=== PATIENT | male | born 1950 | race Caucasian/White ===

== ENCOUNTER 2018-07-01 11:41 | Inpatient (IN) ==
--- NOTE | 2018-07-01 12:14 | ED ---
HPI General Chief complaint: Respiratory Symptoms Stated complaint: SOB Time Seen by Provider: 07/01/18 12:01 History of Present Illness HPI narrative: Patient is visiting from [place]. He has a history of lung cancer and emphysema. He completed chemo on Wednesday per his . O2 sat at home about 78% he denies chest pain, lower extremity edema, fever, but reports a cough. Reporting shortness of breath on exertion and rest. Patient wants to be resuscitated but not intubated. Patient not on hospice or palliative care per family. Related Data Home Medications Medication Instructions Recorded Confirmed albuterol sulfate 2.5 mg INHALATION Q6H PRN 07/01/18 07/01/18 dextromethorphan-guaifenesin 1 tab PO Q12H 07/01/18 07/01/18 fluticasone-vilanterol [Breo 1 inh INHALATION DAILY 07/01/18 07/01/18 Ellipta] megestrol 800 mg PO DAILY 07/01/18 07/01/18 mirtazapine 15 mg PO HS 07/01/18 07/01/18 ondansetron HCl [Zofran] 8 mg PO BID PRN 07/01/18 07/01/18 oxycodone-acetaminophen 1 tab PO Q6H PRN 07/01/18 07/01/18 polyethylene glycol 3350 [Miralax] 17 g PO DAILY 07/01/18 07/01/18 prochlorperazine maleate 10 mg PO Q6H PRN 07/01/18 07/01/18 [Compazine] sennosides 8.6 mg PO DAILY PRN 07/01/18 07/01/18 sertraline [Zoloft] 50 mg PO DAILY 07/01/18 07/01/18 Allergies Allergy/AdvReac Type Severity Reaction Status Date / Time ibuprofen [From Advil] Allergy Hives Verified 07/01/18 11:58 Penicillins Allergy Hives Verified 07/01/18 11:58 Review of Systems ROS: all other systems reviewed are negative [facility] Medical History Medical History Emphysema lung (Acute) Lung cancer (Acute) Social History Social History Substance History: No History of Abuse Second Hand Smoke Exposure: No Smoking Status: Current every day smoker Tobacco Type: E-Cigarettes How Often Do You Have a Drink Containing Alcohol: Never Recent Travel in [facility] within the Last 8 Weeks: No Recent Out of Country Travel within the Last 8 Weeks: No Immunization History Tetanus Immunization: Unsure Hx Influenza Vaccine This Season: Yes Exam Narrative Exam Narrative: GENERAL: Respiratory distress peer SKIN: Focused skin assessment warm/dry. HEAD: Atraumatic. Normocephalic. EYES: Pupils equal and round. No scleral icterus. No injection or drainage. ENT: No nasal bleeding or discharge. Mucous membranes pink and moist. NECK: Trachea midline. No JVD. CARDIOVASCULAR: Tachycardic. No murmur appreciated. RESPIRATORY: No accessory muscle use. Clear to auscultation. Decreased breath sounds on the right. GASTROINTESTINAL: Abdomen soft, non-tender, nondistended. Hepatic and splenic margins not palpable. MUSCULOSKELETAL: No obvious deformities. No clubbing. No cyanosis. No edema. NEUROLOGICAL: Awake and alert. No obvious cranial nerve deficits. Motor grossly within normal limits. Normal speech. PSYCHIATRIC: Appropriate mood and affect; insight and judgment normal. Course Initial Documented Vital Signs Temperature 97.7 F 07/01/18 11:44 Pulse Rate 120 H 07/01/18 11:44 Respiratory Rate 24 07/01/18 11:44 Blood Pressure 123/82 07/01/18 11:44 Pulse Oximetry 82 L 07/01/18 11:44 Last Documented Vital Signs Temperature 97.7 F 07/01/18 11:44 Pulse Rate 108 H 07/01/18 15:13 Respiratory Rate 17 07/01/18 15:13 Blood Pressure 103/70 07/01/18 14:44 Pulse Oximetry 94 L 07/01/18 14:44 Critical Care Time Critical Care Time: Yes Total Critical Care Time: 30 Attestation: Aggregate critical care time was 30 minutes. Time to perform other separately billable procedures was not included in the critical care time. My time did not include minutes spent treating any other patients simultaneously or on activities that did not directly contribute to the patient's treatment. The services I provided to this patient were to treat and/or prevent clinically significant deterioration that could result in: cardiac arrest, respiratory failure, increased morbidity, I provided critical care services requiring my management, as noted below: Chart data review, documentation time, medication orders and management, vital sign assessments/reviewing monitor data, ordering and reviewing lab tests, ordering and interpreting/reviewing x-rays and diagnostic studies, care of the patient and discussion of the patient with the admitting physicians. Medical Decision Making MDM Narrative Medical decision making narrative: Patient presents to the emergency department with hypoxia. Patient placed on brick unloader tender, continuous pulse ox, and was satting in the low 80s/high 70s on 3 L NC. Switched to nonrebreather and weaned to 4L via NC which resulted in O2 sat of 90-93%. Labs, EKG, chest x- ray ordered. Labs: Low plt; decrease hgb/HCT; d-dimer increased; glc increased; potassium and magnesium decreased, lactic acid elevated Received call from radiology, recommend CT chest as he states small PTX. CT chest ordered STAT and CT called. CXR: CONCLUSION:Suspected emphysematous change in the right upper lung with a mild pneumothorax seen over the right apex.Areas of consolidation the mid to lower lungs bilaterally.Prominent interstitium which may represent some underlying interstitial disease. patient given 2grams IV magnesium, 20 MEQ KCL po. Duoneb x 1. CTA chest: CONCLUSION:1. Extensive edematous changes with small right pneumothorax2. Extensive pleural and parenchymal changes in both lungswith large left hilar mass3. With metastasis as described above.4. No central pulmonary emboli. Will admit to [facility]. Medical Screen Exam Complete: Yes Emergency Medical Condition: Yes Differential Diagnosis Differential Diagnosis: PE, pneumothorax, pneumonia, sepsis, pleural effusion, pulmonary edema, COPD exacerbation, ACS Lab Data Result diagrams: 07/01/18 15:10 07/01/18 12:18 Lab Results 07/01/18 07/01/18 07/01/18 Range/Units 12:02 12:18 12:18 WBC (4.0-11.0) th/mm3 RBC (4.50-5.90) mil/mm3 Hgb (13.0-17.0) gm/dL Hct (39.0-51.0) % MCV (80.0-100.0) fL MCH (27.0-34.0) pg MCHC (32.0-36.0) % RDW (11.6-17.2) % Plt Count (150-450) th/mm3 MPV (7.0-11.0) fL Prelim Diff (Auto) Neut % (Auto) (16.0-70.0) % Lymph % (Auto) (9.0-44.0) % Branch % (Auto) (0.0-8.0) % Eos % (Auto) (0.0-4.0) % Baso % (Auto) (0.0-2.0) % Neut # (Auto) (1.8-7.7) th/mm3 Lymph # (Auto) (1.0-4.8) th/mm3 Branch # (Auto) (0.0-0.9) th/mm3 Eos # (Auto) (0.0-0.4) th/mm3 Baso # (Auto) (0.0-0.2) th/mm3 Differential Comment . PT 11.3 (9.8-11.6) sec INR 1.1 Ratio APTT 29.5 (24.3-30.1) sec D-Dimer Quant (PE/DVT) 2.50 H (0.00-0.50) mg/L FEU Puncture Site Left radial Patient Temperature 98.6 O2 Saturation 96 (90-100) % ABG pH 7.51 H* (7.380-7.420) ABG pCO2 30 L (38-42) mmHg ABG pO2 122 H (61-120) mmHg ABG HCO3 23 (22-26) mmol/L ABG O2 Content 13.7 (12.0-20.0) Vol % ABG Base Excess 0.5 (-2-2) mmol/L ABG Methemoglobin 0.3 (0-2) % Russ Test Present Hemoglobin 10.0 L (12.0-16.0) G/DL Carboxyhemoglobin 2.1 (0-4) % O2 Delivery Device Non-rebreathing mask Inspired O2 100 % Critical Value Yes Sodium (136-145) meq/L Potassium (3.5-5.1) meq/L Chloride (98-107) meq/L Carbon Dioxide (21.0-32.0) meq/L Anion Gap (5-15) meq/L BUN (7-18) mg/dL Creatinine (0.60-1.30) mg/dL Estimated GFR (>89) mL/min Random Glucose (74-106) mg/dL Lactic Acid (0.4-2.0) mmol/L Calcium (8.5-10.1) mg/dL Magnesium (1.5-2.5) mg/dL Total Bilirubin (0.2-1.0) mg/dL AST (15-37) U/L ALT (12-78) U/L Alkaline Phosphatase (45-117) U/L Total Creatine Kinase (39-308) U/L Troponin I (0.02-0.05) ng/mL B-Natriuretic Peptide (0-100) pg/mL Total Protein (6.4-8.2) g/dL Albumin (3.4-5.0) g/dL 07/01/18 07/01/18 07/01/18 Range/Units 12:18 12:18 12:18 WBC (4.0-11.0) th/mm3 RBC (4.50-5.90) mil/mm3 Hgb (13.0-17.0) gm/dL Hct (39.0-51.0) % MCV (80.0-100.0) fL MCH (27.0-34.0) pg MCHC (32.0-36.0) % RDW (11.6-17.2) % Plt Count (150-450) th/mm3 MPV (7.0-11.0) fL Prelim Diff (Auto) Neut % (Auto) (16.0-70.0) % Lymph % (Auto) (9.0-44.0) % Branch % (Auto) (0.0-8.0) % Eos % (Auto) (0.0-4.0) % Baso % (Auto) (0.0-2.0) % Neut # (Auto) (1.8-7.7) th/mm3 Lymph # (Auto) (1.0-4.8) th/mm3 Branch # (Auto) (0.0-0.9) th/mm3 Eos # (Auto) (0.0-0.4) th/mm3 Baso # (Auto) (0.0-0.2) th/mm3 Differential Comment PT (9.8-11.6) sec INR Ratio APTT (24.3-30.1) sec D-Dimer Quant (PE/DVT) (0.00-0.50) mg/L FEU Puncture Site Patient Temperature O2 Saturation (90-100) % ABG pH (7.380-7.420) ABG pCO2 (38-42) mmHg ABG pO2 (61-120) mmHg ABG HCO3 (22-26) mmol/L ABG O2 Content (12.0-20.0) Vol % ABG Base Excess (-2-2) mmol/L ABG Methemoglobin (0-2) % Russ Test Hemoglobin (12.0-16.0) G/DL Carboxyhemoglobin (0-4) % O2 Delivery Device Inspired O2 % Critical Value Sodium 136 (136-145) meq/L Potassium 3.2 L (3.5-5.1) meq/L Chloride 101 (98-107) meq/L Carbon Dioxide 21.6 (21.0-32.0) meq/L Anion Gap 13 (5-15) meq/L BUN 13 (7-18) mg/dL Creatinine 0.66 (0.60-1.30) mg/dL Estimated GFR Greater than 89 (>89) mL/min Random Glucose 126 H (74-106) mg/dL Lactic Acid 2.3 H (0.4-2.0) mmol/L Calcium 8.8 (8.5-10.1) mg/dL Magnesium 1.4 L (1.5-2.5) mg/dL Total Bilirubin 0.7 (0.2-1.0) mg/dL AST 28 (15-37) U/L ALT 42 (12-78) U/L Alkaline Phosphatase 80 (45-117) U/L Total Creatine Kinase 35 L (39-308) U/L Troponin I Less than 0.02 L (0.02-0.05) ng/mL B-Natriuretic Peptide 73 (0-100) pg/mL Total Protein 7.2 (6.4-8.2) g/dL Albumin 2.3 L (3.4-5.0) g/dL 07/01/18 Range/Units 15:10 WBC 7.3 (4.0-11.0) th/mm3 RBC 2.98 L (4.50-5.90) mil/mm3 Hgb 9.6 L (13.0-17.0) gm/dL Hct 28.8 L (39.0-51.0) % MCV 96.6 (80.0-100.0) fL MCH 32.1 (27.0-34.0) pg MCHC 33.2 (32.0-36.0) % RDW 23.7 H (11.6-17.2) % Plt Count 70 L (150-450) th/mm3 MPV 8.2 (7.0-11.0) fL Prelim Diff (Auto) Slide review pending Neut % (Auto) 92.5 H (16.0-70.0) % Lymph % (Auto) 3.5 L (9.0-44.0) % Branch % (Auto) 3.7 (0.0-8.0) % Eos % (Auto) 0.0 (0.0-4.0) % Baso % (Auto) 0.3 (0.0-2.0) % Neut # (Auto) 6.8 (1.8-7.7) th/mm3 Lymph # (Auto) 0.3 L (1.0-4.8) th/mm3 Branch # (Auto) 0.3 (0.0-0.9) th/mm3 Eos # (Auto) 0.0 (0.0-0.4) th/mm3 Baso # (Auto) 0.0 (0.0-0.2) th/mm3 Differential Comment PT (9.8-11.6) sec INR Ratio APTT (24.3-30.1) sec D-Dimer Quant (PE/DVT) (0.00-0.50) mg/L FEU Puncture Site Patient Temperature O2 Saturation (90-100) % ABG pH (7.380-7.420) ABG pCO2 (38-42) mmHg ABG pO2 (61-120) mmHg ABG HCO3 (22-26) mmol/L ABG O2 Content (12.0-20.0) Vol % ABG Base Excess (-2-2) mmol/L ABG Methemoglobin (0-2) % Russ Test Hemoglobin (12.0-16.0) G/DL Carboxyhemoglobin (0-4) % O2 Delivery Device Inspired O2 % Critical Value Sodium (136-145) meq/L Potassium (3.5-5.1) meq/L Chloride (98-107) meq/L Carbon Dioxide (21.0-32.0) meq/L Anion Gap (5-15) meq/L BUN (7-18) mg/dL Creatinine (0.60-1.30) mg/dL Estimated GFR (>89) mL/min Random Glucose (74-106) mg/dL Lactic Acid (0.4-2.0) mmol/L Calcium (8.5-10.1) mg/dL Magnesium (1.5-2.5) mg/dL Total Bilirubin (0.2-1.0) mg/dL AST (15-37) U/L ALT (12-78) U/L Alkaline Phosphatase (45-117) U/L Total Creatine Kinase (39-308) U/L Troponin I (0.02-0.05) ng/mL B-Natriuretic Peptide (0-100) pg/mL Total Protein (6.4-8.2) g/dL Albumin (3.4-5.0) g/dL Imaging Data Radiologist's impression: Chest X-Ray 07/01/18 12:02 CONCLUSION: Suspected emphysematous change in the right upper lung with a mild pneumothorax seen over the right apex. Areas of consolidation the mid to lower lungs bilaterally. Prominent interstitium which may represent some underlying interstitial disease. Chest CTA 07/01/18 13:19 CONCLUSION: 1. Extensive edematous changes with small right pneumothorax 2. Extensive pleural and parenchymal changes in both lungs with large left hilar mass 3. With metastasis as described above. 4. No central pulmonary emboli. ECG Data Attestation: I personally reviewed and interpreted this ECG as follows: (Sinus tachycardia at 114, normal axis, QTC 395, ST depression in lead II, 3, aVF, V5; T-wave inversion in aVL) Discharge Plan Discharge Disposition Patient Disposition: 30 Still Patient Discharge Condition Condition: Serious Discharge Details Diagnosis: Lung cancer, Pneumothorax, Hypoxia, COPD (chronic obstructive pulmonary disease ), Acute hypokalemia, Hypomagnesemia Physicians Team ED Provider: Catrachita Thomson Primary Care Provider: UNKNOWN, Attending Provider: Cesar Jones Discharge Interventions Interventions: Vital Signs Last Done: 07/01/18 14:44 Status ED Status: Admitted Patient
[2018-07-01 12:40] LABS: Baso % (Auto) 0.3 % (0.0-2.0); Hematocrit 28.8 % (39.0-51.0); Hemoglobin 9.6 gm/dL (13.0-17.0); Lymph # (Auto) 0.3 th/mm3 (1.0-4.8); Lymph % (Auto) 3.5 % (9.0-44.0); Mean Corpuscular HGB Conc 33.2 % (32.0-36.0); Mean Corpuscular Hemoglobin 32.1 pg (27.0-34.0); Mean Corpuscular Volume 96.6 fL (80.0-100.0); Mean Platelet Volume 8.2 fL (7.0-11.0); Mono # (Auto) 0.3 th/mm3 (0.0-0.9); Mono % (Auto) 3.7 % (0.0-8.0); Neut # (Auto) 6.8 th/mm3 (1.8-7.7); Neut % (Auto) 92.5 % (16.0-70.0); Platelet Count 70 th/mm3 (150-450); Red Blood Count 2.98 mil/mm3 (4.50-5.90); Red Cell Distribution Width 23.7 % (11.6-17.2); White Blood Count 7.3 th/mm3 (4.0-11.0)
[2018-07-01 12:48] LABS: ABG Base Excess 0.5 mmol/L (-2-2); ABG PCO2 30 mmHg (38-42); ABG PO2 122 mmHg (61-120)
--- NOTE | 2018-07-01 12:52 | XR ---
EXAM DATE: 07/01/2018 12:40 PM EDT AGE/SEX: 67 years / Male INDICATIONS: Dyspnea and shortness of breath. CLINICAL DATA: This is the patient's initial encounter. Patient reports that signs and symptoms have been present for 1 day and indicates a pain score of 0/10. MEDICAL/SURGICAL HISTORY: Carcinoma, lung. Emphysema. Spinal stenosis. None. COMPARISON: No prior exams available for comparison. FINDINGS: There is consolidation seen at the left mid and lower lung. There also appears to be consolidation at the right infrahilar and medial base. There is prominence of the interstitium especially on the righ t. There appears to be emphysematous change in the right upper lung. There is a suspected mild pneumo thorax seen over the right upper lung associated with the emphysematous change. The heart size is wit hin normal limits. Significant effusions are not clearly seen. CONCLUSION: Suspected emphysematous change in the right upper lung with a mild pneumothorax seen over the right a pex. Areas of consolidation the mid to lower lungs bilaterally. Prominent interstitium which may represent some underlying interstitial disease. Electronically signed by: Aston Coats MD 07/01/2018 12:51 PM EDT
[2018-07-01 12:53] LABS: Activated Partial Thrombo Time 29.5 sec (24.3-30.1); INR 1.1 Ratio; Prothrombin Time 11.3 sec (9.8-11.6)
[2018-07-01 12:55] LABS: D-Dimer 2.5 mg/L FEU (0.00-0.50)
[2018-07-01 12:57] LABS: Albumin 2.3 g/dL (3.4-5.0); Anion Gap 13 meq/L (5-15); Aspartate Aminotransferase 28 U/L (15-37); Blood Urea Nitrogen 13 mg/dL (7-18); Calcium 8.8 mg/dL (8.5-10.1); Carbon Dioxide 21.6 meq/L (21.0-32.0); Chloride 101 meq/L (98-107); Glomerular Filtration Rate Greater Than 89 mL/min (>89); Glucose,Random 126 mg/dL (74-106); Magnesium 1.4 mg/dL (1.5-2.5); Potassium 3.2 meq/L (3.5-5.1); Sodium 136 meq/L (136-145)
[2018-07-01 13:02] LABS: Alanine Aminotransferase 42 U/L (12-78); Alkaline Phosphatase 80 U/L (45-117); Total Protein 7.2 g/dL (6.4-8.2)
[2018-07-01 13:05] LABS: Creatine Kinase 35 U/L (39-308)
[2018-07-01] MEDS ORDERED: Magnesium Sulfate Inj 2 GM in Sodium Chlor 0.9% Inj 96 ML IV.SIG ONE (13:08)
--- NOTE | 2018-07-01 14:31 | CT ---
EXAM DATE: 07/01/2018 2:19 PM EDT AGE/SEX: 67 years / Male INDICATIONS: Short of Breath, Went to chemo today CLINICAL DATA: This is the patient's initial encounter. Patient reports that signs and symptoms have been present for 1 day and indicates a pain score of 6/10. MEDICAL/SURGICAL HISTORY: Carcinoma, lung. Emphysema. None. RADIATION DOSE: 9.32 CTDI (mGy) COMPARISON: No prior exams available for comparison. TECHNIQUE: Volumetric scanning was performed using a multi-row detector CT scanner during bolus infu erica of 73ML ml Omnipaque 350 (iohexol) nonionic water-soluble contrast as a single exam dose. The d sharifa was post processed with a variety of visualization algorithms including full volume maximum inten sity projection and sliding thin slab reformation. Using automated exposure control and adjustment of the mA and/or kV according to patient size, radiation dose was kept as low as reasonably achievable to obtain optimal diagnostic quality images. DICOM format image data is available electronically for review and comparison. FINDINGS: Lungs: Extensive emphysematous changes are present in both lungs with large bullae present. There is a small pneumothorax on the right. There is a right hilar mass. There is direct extension into the mediastinum of this right hilar mass. There is extensive mediastinal adenopathy There is no central pulmonary emboli Coarse interstitial and alveolar infiltrates are seen in both lungs with consolidation in the right l ower lobe. There is no pericardial effusion. There is a bony metastasis involving the T4, T5 and T6 vertebral bodies, left side with a pleural-bas ed mass. . There is extraosseous spread of tumor. Gallstones CONCLUSION: 1. Extensive edematous changes with small right pneumothorax 2. Extensive pleural and parenchymal changes in both lungs with large left hilar mass 3. With metastasis as described above. 4. No central pulmonary emboli. Electronically signed by: Darrion Garcia MD 07/01/2018 2:30 PM EDT
[2018-07-01 15:28] LABS: Platelet Morphology Clumped (Normal)
--- NOTE | 2018-07-01 15:34 | P.HPIM ---
History of Present Illness Primary Care Physician: UNKNOWN History of Present Illness: Mr. Rodgers is a 67-year-old male. He is visiting [place] from [place]. He has lung cancer at baseline which is metastatic to the spine. Chemotherapy is provided recently. She says he has not had reactions in the past to chemotherapy similar to what occurring today which is respiratory distress and hypoxia. Today he comes in the hospital with progressive shortness of breath. His family reports that he may have been short of breath for up to a week but in the past 48 hours he has had acute regression in the shortness of breath. As an outpatient he uses oxygen as needed. Oxygen saturations as an outpatient were in the 70s and 80s. He came into the ER at 80% on 3 L and oxygen saturation was in the 80s. A nonrebreather was utilized which improved his saturations and his respiratory distress. Subsequently he has been weaned to 4 L/min nasal cannula of oxygen. Chemotherapy places this patient in immunocompromise state which may hide pneumonia. Pneumonia could be one etiology for his respiratory distress and failure. An additional finding is a small pneumothorax so this pneumothorax is an acute change this could cause his respiratory distress and failure. - Diagnosis (1) Acute respiratory failure (2) Lung cancer (3) Pneumothorax (4) Hypoxia (5) COPD (chronic obstructive pulmonary disease) Inpatient Certification: I certify that the inpatient services were ordered in accordance with Medicare regulations governing the order. This includes certification that hospital inpatient services are reasonable and necessary and in the case of services not specified as inpatient-only under 42 CFR 419.22(n), that they are appropriately provided as inpatient services in accordance to with the 2-midnight benchmark under 43 CFR 412.3(e) Estimated Total Length of Stay (Days): 3 Plans for Post Hospital Care: Home Review of Systems Constitutional: No fevers, no chills no night sweats, no fatigue, weakness Eyes: No eye pain, no blurry vision, no loss of vision ENT: No sore throat, no ear pain, no rhinorrhea Cardiovascular: No chest pain, no tachycardia, no palpitations, no shortness of breath, no syncope Respiratory: No wheezing, no cough, shortness of breath Gastrointestinal: No abdominal pain, no black tarry stools, no bright red blood per rectum, no vomiting, no diarrhea Musculoskeletal: No joint pain, no muscle cramps, no stiffness Integumentary: No rash, no ulcers, no drainage Neurologic: No sensory loss, no loss of motor function, no dizziness Psychiatric: No behavioral changes, no hallucinations, no suicidal ideations PMFSH - History History Provided By: Patient, Family Member - Medical History Medical History: Medical History (Last Updated 07/01/18 @ 12:00 by Birgit Dong) Emphysema lung Lung cancer - Tobacco History Second Hand Smoke Exposure: No Tobacco Use In Past 30 Days: Yes Smoking Status: Current every day smoker Tobacco Type: E-Cigarettes - Alcohol History How Often Do You Have a Drink Containing Alcohol: Never - Substance Use History Substance History: No History of Abuse - Travel History Recent Travel in the USA Within the Last 8 Weeks: No Recent Travel Out of the Country Within the Last 8 Weeks: No - Immunization History Tetanus Immunization: Unsure Hx Influenza Vaccine This Season: Yes Medications and Allergies Active Medications: Active Medications Hydrocodone Bitart/Acetaminophen ([place] 5/325) 1 tab PO Q4H PRN PRN Reason: Pain 3 to 6 Hydrocodone Bitart/Acetaminophen ([place] 10/325) 1 tab PO Q4H PRN PRN Reason: Pain 7 to 10 Al Hydroxide/Mg Hydroxide (Milk Of Rl Liq) 30 ml PO Q12H PRN PRN Reason: Mild Constipation Sodium Chloride (Ns Inj) 1,000 mls @ 50 mls/hr IV.CONT .Q20H KIANA Azithromycin 500 mg/ Sodium (Chloride) 250 mls @ 250 mls/hr IV.SIG Q24H KIANA Ceftriaxone Sodium 1,000 mg/ (Sodium Chloride) 100 mls @ 200 mls/hr IV.SIG Q24H KIANA Lactobacillus Acidophilus (Lactinex) 1 tab PO TID KIANA Ondansetron HCl (Zofran Inj) 4 mg IV.PUSH Q6H PRN PRN Reason: NAUSEA OR VOMITING Allergies Allergy/AdvReac Type Severity Reaction Status Date / Time ibuprofen [From Advil] Allergy Hives Verified 07/01/18 11:58 Penicillins Allergy Hives Verified 07/01/18 11:58 Home Medications Medication Instructions Recorded Confirmed Type albuterol sulfate 2.5 mg INHALATION Q6H PRN 07/01/18 07/01/18 History dextromethorphan-guaifenesin 1 tab PO Q12H 07/01/18 07/01/18 History fluticasone-vilanterol [Breo 1 inh INHALATION DAILY 07/01/18 07/01/18 History Ellipta] megestrol 800 mg PO DAILY 07/01/18 07/01/18 History mirtazapine 15 mg PO HS 07/01/18 07/01/18 History ondansetron HCl [Zofran] 8 mg PO BID PRN 07/01/18 07/01/18 History oxycodone-acetaminophen 1 tab PO Q6H PRN 07/01/18 07/01/18 History polyethylene glycol 3350 [Miralax] 17 g PO DAILY 07/01/18 07/01/18 History prochlorperazine maleate 10 mg PO Q6H PRN 07/01/18 07/01/18 History [Compazine] sennosides 8.6 mg PO DAILY PRN 07/01/18 07/01/18 History sertraline [Zoloft] 50 mg PO DAILY 07/01/18 07/01/18 History Exam Vital signs: Vital Signs 07/01/18 11:44 07/01/18 11:59 07/01/18 13:42 Temperature 97.7 F Pulse Rate 120 H 110 H 107 H Respiratory Rate 24 25 H 30 H Blood Pressure 123/82 120/74 95/64 L Pulse Oximetry 82 L 100 95 07/01/18 14:44 07/01/18 15:13 Temperature Pulse Rate 104 H 108 H Respiratory Rate 17 17 Blood Pressure 103/70 Pulse Oximetry 94 L Intake & Output 06/30/18 07/01/18 07/01/18 18:59 06:59 18:59 Weight 61.689 kg Narrative: GENERAL: NAD, A&Ox3 HEAD: Normocephalic. NECK: Supple, trachea midline. No lymphadenopathy. EYES: No scleral icterus. No injection or drainage. CARDIOVASCULAR: Regular rate and rhythm without murmurs, gallops, or rubs. RESPIRATORY: Breath sounds equal bilaterally. No accessory muscle use. Rhonchi bilaterally. No crackles. No wheezing. GASTROINTESTINAL: Abdomen soft, non-tender, nondistended. MUSCULOSKELETAL: No cyanosis, or edema. SKIN: Warm and dry. NEURO: No focal neurological deficits. Results - Labs CBC & Chem 7: 07/01/18 15:10 07/01/18 12:18 Labs: Short CBC 07/01/18 Range/Units 15:10 WBC 7.3 (4.0-11.0) th/mm3 Hgb 9.6 L (13.0-17.0) gm/dL Hct 28.8 L (39.0-51.0) % Plt Count 70 L (150-450) th/mm3 BMP 07/01/18 12:18 Sodium 136 Potassium 3.2 L Chloride 101 Carbon Dioxide 21.6 BUN 13 Creatinine 0.66 Calcium 8.8 Cardiac Enzymes 07/01/18 Range/Units 12:18 Total Creatine Kinase 35 L (39-308) U/L Troponin I Less than 0.02 L (0.02-0.05) ng/mL Liver Function 07/01/18 Range/Units 12:18 Total Bilirubin 0.7 (0.2-1.0) mg/dL AST 28 (15-37) U/L ALT 42 (12-78) U/L Alkaline Phosphatase 80 (45-117) U/L Albumin 2.3 L (3.4-5.0) g/dL - Imaging Impressions Chest X-Ray 07/01/18 12:02 CONCLUSION: Suspected emphysematous change in the right upper lung with a mild pneumothorax seen over the right apex. Areas of consolidation the mid to lower lungs bilaterally. Prominent interstitium which may represent some underlying interstitial disease. Chest CTA 07/01/18 13:19 CONCLUSION: 1. Extensive edematous changes with small right pneumothorax 2. Extensive pleural and parenchymal changes in both lungs with large left hilar mass 3. With metastasis as described above. 4. No central pulmonary emboli. Caprini VTE Risk Assessment Caprini VTE Risk Assessment: Moderate/High Risk (score >= 2) VTE Pharmacological Exception Reason: High risk for bleeding Caprini Risk Assessment Model: Point Value = 1 Point Value = 2 Point Value = 3 Point Value = 5 Age 41-60 Minor surgery BMI > 25 kg/m2 Swollen legs Varicose veins or History of unexplained or recurrent spontaneous Oral contraceptives or hormone replacement Sepsis (< 1 month) Serious lung disease, including pneumonia (< 1 month) Abnormal pulmonary function Acute myocardial infarction Congestive heart failure (< 1 month) History of inflammatory bowel disease Medical patient at bed rest Age 61-74 Arthroscopic surgery Major open surgery (> 45 min) Laparoscopic surgery (> 45 min) Malignancy Confined to bed (> 72 hours) Immobilizing plaster cast Central venous access Age >= 75 History of VTE Family history of VTE Factor V Leiden Prothrombin [id number] Lupus anticoagulant Anticardiolipin antibodies Elevated serum homocysteine Heparin-induced thrombocytopenia Other congenital or acquired thrombophilia Stroke (< 1 month) Elective arthroplasty Hip, pelvis, or leg fracture Acute spinal cord injury (< 1 month) Prophylaxis Regimen: Total Risk Factor Score Risk Level Prophylaxis Regimen 0-1 Low Early ambulation 2 Moderate Order ONE of the following: *Sequential Compression Device (SCD) *Heparin 5000 units SQ BID 3-4 Higher Order ONE of the following medications: *Heparin 5000 units SQ TID *Enoxaparin/Lovenox 40 mg SQ daily (WT < 150 kg, CrCl > 30 mL/min) *Enoxaparin/Lovenox 30 mg SQ daily (WT < 150 kg, CrCl > 10-29 mL/min) *Enoxaparin/Lovenox 30 mg SQ BID (WT < 150 kg, CrCl > 30 mL/min) AND/OR *Sequential Compression Device (SCD) 5 or more Highest Order ONE of the following medications: *Heparin 5000 units SQ TID (Preferred with Epidurals) *Enoxaparin/Lovenox 40 mg SQ daily (WT < 150 kg, CrCl > 30 mL/min) *Enoxaparin/Lovenox 30 mg SQ daily (WT < 150 kg, CrCl > 10-29 mL/min) *Enoxaparin/Lovenox 30 mg SQ BID (WT < 150 kg, CrCl > 30 mL/min) AND *Sequential Compression Device (SCD) Assessment and Plan - Assessment (1) Acute respiratory failure Code(s): J96.00 - Acute respiratory failure, unspecified whether with hypoxia or hypercapnia Status: Acute (2) Lung cancer Code(s): C34.90 - Malignant neoplasm of unspecified part of unspecified bronchus or lung Status: Acute (3) Pneumothorax Code(s): J93.9 - Pneumothorax, unspecified Status: Acute (4) Hypoxia Code(s): R09.02 - Hypoxemia Status: Acute (5) COPD (chronic obstructive pulmonary disease) Code(s): J44.9 - Chronic obstructive pulmonary disease, unspecified Status: Acute - Plan 67-year-old male admitted secondary to acute respiratory failure with hypoxia Hypoxia Acute respiratory failure Etiology could be related to pneumothorax that this is an acute change Etiology could be from a hidden pneumonia Etiology could be inflammatory or COPD exacerbation Etiology could be related to progressive low volume bleed at tumor Admit to CIC continue oxygen supplementation for control Monitor oxygen saturations Patient is a DO NOT INTUBATE status patient Lung cancer Metastatic lung cancer Thoracic spine metastasis Active chemotherapy Immunocompromise Risk for hidden pneumonia (underrepresentation on imaging and CBC) in the presence of immunocompromise In light of respiratory failure and risk of infection, begin Rocephin and azithromycin Follow CBC to ensure not bleeding Consider upgrading to systemic blood thinners if Hgb is stable or improving through time COPD No overt exacerbation. As needed albuterol nebs Scheduled duo nebs while awake Moderate dosing of systemic steroids Follow for any evidence of exacerbation Continue baseline treatments Hypokalemia Hypomagnesia Monitor and replace as needed DVT prophylaxis SCDs for now Consider upgrading to anticoagulation once stability of CBC is determined to ensure no pulmonary bleeding CODE STATUS DO NOT INTUBATE (intubation is not desired) Chest compressions, ACLS medications, and electrical shocks would be desired Discharge planning Patient will need improved oxygenation, stabilization, and inability to ambulate without hypoxia prior to discharge.
[2018-07-01] MEDS ORDERED: MethylPREDNISolone Sod Succinate Inj 40 MG/ML Vial IV.PUSH ONE (16:00)
[2018-07-01] MEDS ORDERED: CODEINE SULFATE PO PRN (16:10)
[2018-07-01] MEDS ORDERED: guaiFENesin/Codeine Syrup 200 MG/20 MG 10 ML UDC PO PRN (16:11)
[2018-07-01] MEDS: Sod Chloride 0.9% Inj 1,000 ML IV.CONT SCH (17:25)
[2018-07-01] MEDS: oxyCODONE/Acetaminophen 10/325 Tablet PO PRN (17:25)
[2018-07-01] MEDS: Lactobacillus Acidophilus/L. Spores Tablet PO SCH (18:35)
[2018-07-01] MEDS: Morphine Inj 4 MG/ML Vial IV.PUSH PRN (18:35)
[2018-07-01] MEDS: Azithromycin Inj 500 MG in Sodium Chlor 0.9% Inj 250 ML IV.SIG SCH (18:35)
[2018-07-01] MEDS ORDERED: MethylPREDNISolone Sod Succinate Inj 40 MG/ML Vial IV.PUSH SCH (22:00)
[2018-07-01] MEDS: Mirtazapine 15 MG Tablet PO SCH (23:12)
[2018-07-02 01:33] LABS: ABG Base Excess -1.5 mmol/L (-2-2); ABG PCO2 34 mmHg (38-42); ABG PO2 55 mmHG (61-120)
--- NOTE | 2018-07-02 01:56 | XR ---
EXAM DATE: 07/02/2018 1:48 AM EDT AGE/SEX: 67 years / Male INDICATIONS: Shortness of breath. CLINICAL DATA: This is the patient's subsequent encounter. Patient reports that signs and symptoms h ave been present for 2 days and indicates a pain score of 0/10. MEDICAL/SURGICAL HISTORY: Carcinoma, lung. Emphysema. None. COMPARISON: [facility] [place], CHEST 1V SINGLE AP, 07/01/2018. . FINDINGS: Interval development of almost complete opacification of the right hemithorax. There is some spared a eration in the apex but I do believe there are severe emphysematous changes with a possible lateral l oculated pneumothorax or prominent bleb. On the left, stable airspace disease in the lingular region. Multiple old healed fracture deformities of the posterior lateral left chest. There appears to be some degenerative changes and deformity of the left glenoid. CONCLUSION: 1. Interval development of almost complete opacification of the right hemithorax. Right apical emphy sematous changes with either loculated pneumothorax or prominent bleb. 2. Stable left lingular airspace disease. Electronically signed by: Thuan Ann MD 07/02/2018 1:54 AM EDT
--- NOTE | 2018-07-02 02:13 | P.CONCC ---
History of Present Illness Service: Critical Care Medicine Consult date: 07/02/18 Reason for Consult: Respiratory distress. Primary Care Provider: UNKNOWN History of Present Illness: 67-year-old male who states he was diagnosed with lung cancer with mets to spine in January of 2018. He has undergone radiation and then chemotherapy in [facility] in [place] and says he was told there was good response to therapy. His last treatment was Sunday 06/24. He has a condo down here and is visiting. Presented to ED with worsening SOB. He had CT scan that showed R hilar mass, multiple bullae and emphysematous changes , interstitial fibrosis, R lower lobe consolidation and small PTX that was managed without chest tube. Neg for PE. He has been on nebs, steroids, abx with cetriaxone and azithromycin. He has been on nonrebreather. He was getting up to urinate and became acutely tachypneic and hypoxic with sats in 60s. Halicat was called. CXR demonstrates opacification of right lung and marine steward consult was obtained. Patient is adamant that he would not want intubation and now also indicates DNR for pulseless arrest. [facility] - History History Provided By: Patient, Family Member - Medical History Medical History: Medical History (Last Updated 07/01/18 @ 12:00 by Birgit Dong) Emphysema lung Lung cancer - Surgical History Surgical History: Surgical History (Last Updated 07/02/18 @ 10:00 by Amy Tucker MD) No pertinent past surgical history - Family History Family History: Family History (Last Updated 07/02/18 @ 10:00 by Amy Tucker MD) Other No significant family history - Tobacco History Second Hand Smoke Exposure: No Tobacco Use In Past 30 Days: Yes Smoking Status: Current every day smoker Tobacco Type: E-Cigarettes - Alcohol History How Often Do You Have a Drink Containing Alcohol: Never - Substance Use History Substance History: No History of Abuse - Travel History Recent Travel in the [place] Within the Last 8 Weeks: No Recent Travel Out of the Country Within the Last 8 Weeks: No - Immunization History Tetanus Immunization: Unsure Hx Influenza Vaccine This Season: Yes Medications and Allergies Active Medications: Active Medications Al Hydroxide/Mg Hydroxide (Milk Of Rl Liq) 30 ml PO Q12H PRN PRN Reason: Mild Constipation Albuterol (Albuterol Neb (Prn)) 2.5 mg NEB Q4HR NEB PRN PRN Reason: Dyspnea, Wheezing Last Admin: 07/02/18 01:35 Dose: 2.5 mg Albuterol (Duoneb Neb (Oj)) 1 ampul NEB Q6HR WHILE AWAKE NEB [facility] Fluticasone/Vilanterol (Breo Ellipta 100/25 Mcg Inh) 1 puff INH DAILY [facility] Guaifenesin/Codeine Phosphate (Robitussin Ac 200/20 Mg/10 Ml Liq) 10 ml PO Q4H PRN PRN Reason: COUGH Sodium Chloride (Ns Inj) 1,000 mls @ 50 mls/hr IV.CONT .Q20H [facility] Last Admin: 07/01/18 17:25 Dose: 50 mls/hr Azithromycin 500 mg/ Sodium (Chloride) 250 mls @ 250 mls/hr IV.SIG Q24H [facility] Last Infusion: 07/01/18 19:39 Dose: Infused Ceftriaxone Sodium 1,000 mg/ (Sodium Chloride) 100 mls @ 200 mls/hr IV.SIG Q24H [facility] Last Infusion: 07/01/18 18:22 Dose: Infused Lactobacillus Acidophilus (Lactinex) 1 tab PO TID [facility] Last Admin: 07/01/18 18:35 Dose: 1 tab Megestrol Acetate (Megace Liq) 800 mg PO DAILY [facility] Methylprednisolone Sodium Succinate (Solumedrol Inj) 20 mg IV.PUSH Q8HR [facility] Last Admin: 07/01/18 23:15 Dose: 20 mg Mirtazapine (Remeron) 15 mg PO HS [facility] Last Admin: 07/01/18 23:12 Dose: 15 mg Morphine Sulfate (Morphine Inj) 4 mg IV.PUSH Q4H PRN PRN Reason: BREAKTHROUGH PAIN Last Admin: 07/01/18 18:35 Dose: 4 mg Ondansetron HCl (Zofran Inj) 4 mg IV.PUSH Q6H PRN PRN Reason: NAUSEA OR VOMITING Ondansetron HCl (Zofran Odt) 8 mg PO BID PRN PRN Reason: Nausea Oxycodone/Acetaminophen (Percocet 10/325 Mg) 1 tab PO Q4H PRN PRN Reason: Pain 7 to 10 Last Admin: 07/01/18 17:25 Dose: 1 tab Oxycodone/Acetaminophen (Percocet 5/325 Mg) 1 tab PO Q4H PRN PRN Reason: Pain 3 to 6 Polyethylene Glycol (Miralax) 17 gm PO DAILY OJ Prochlorperazine Maleate (Compazine) 10 mg PO Q6H PRN PRN Reason: Nausea Sennosides (Senokot) 8.6 mg PO DAILY PRN PRN Reason: Constipation Sertraline HCl (Zoloft) 50 mg PO DAILY OJ Allergies Allergy/AdvReac Type Severity Reaction Status Date / Time ibuprofen [From Advil] Allergy Hives Verified 07/01/18 11:58 Penicillins Allergy Hives Verified 07/01/18 11:58 Home Medications Medication Instructions Recorded Confirmed Type albuterol sulfate 2.5 mg INHALATION Q6H PRN 07/01/18 07/01/18 History dextromethorphan-guaifenesin 1 tab PO Q12H 07/01/18 07/01/18 History fluticasone-vilanterol [Breo 1 inh INHALATION DAILY 07/01/18 07/01/18 History Ellipta] megestrol 800 mg PO DAILY 07/01/18 07/01/18 History mirtazapine 15 mg PO HS 07/01/18 07/01/18 History morphine 15 mg PO Q6H 07/01/18 07/01/18 History ondansetron HCl [Zofran] 8 mg PO BID PRN 07/01/18 07/01/18 History oxycodone-acetaminophen 1 tab PO Q6H PRN 07/01/18 07/01/18 History polyethylene glycol 3350 [Miralax] 17 g PO DAILY 07/01/18 07/01/18 History prochlorperazine maleate 10 mg PO Q6H PRN 07/01/18 07/01/18 History [Compazine] sennosides 8.6 mg PO DAILY PRN 07/01/18 07/01/18 History sertraline [Zoloft] 50 mg PO DAILY 07/01/18 07/01/18 History Physical Exam Vital signs: Vital Signs 07/01/18 11:44 07/01/18 11:59 07/01/18 13:42 Temperature 97.7 F Pulse Rate 120 H 110 H 107 H Respiratory Rate 24 25 H 30 H Blood Pressure 123/82 120/74 95/64 L Pulse Oximetry 82 L 100 95 07/01/18 14:44 07/01/18 15:13 07/01/18 15:41 Temperature Pulse Rate 104 H 108 H 112 H Respiratory Rate 17 17 32 H Blood Pressure 103/70 116/77 Pulse Oximetry 94 L 93 L 07/01/18 17:48 07/01/18 18:30 07/01/18 19:00 Temperature 98.3 F 97.8 F Pulse Rate 105 H 100 H Respiratory Rate 26 H 22 Blood Pressure 130/83 99/55 L Pulse Oximetry 92 L 96 93 L 07/02/18 01:00 Temperature Pulse Rate Respiratory Rate Blood Pressure Pulse Oximetry 69 L Intake & Output 07/01/18 07/01/18 07/02/18 06:59 18:59 06:59 Intake Total 200 / 200 250 / 250 Balance 200 / 200 250 / 250 Weight 61.689 kg Intake: IV 200 / 200 250 / 250 Azithromycin Inj 500 MG In NS 250 / 250 Inj 250 ML @ 250 mls/hr IV.SIG Q24H OJ Rx#:[id number] Magnesium Sulfate Inj 2 GM In 100 / 100 NS Inj 96 ML @ 50 mls/hr IV.SIG ONCE ONE Rx#:[id number] Rocephin Inj 1,000 MG In NS Inj 100 / 100 100 ML @ 200 mls/hr IV.SIG Q24H OJ Rx#:[id number] Other: Date of Last Bowel Movement 07/01/18 Narrative: GENERAL: Ill-appearing male who is sitting up in CIC bed. He is alert and interactive on nonrebreather. SKIN: Warm and dry. HEAD: Atraumatic. Normocephalic. EYES: Pupils equal and round. No scleral icterus. No injection or drainage. ENT: Nonrebreather mask in place. NECK: Trachea midline. No JVD. CARDIOVASCULAR: Regular rate and rhythm. No murmurs rubs or gallops. RESPIRATORY: Diminished breath sounds throughout right lung field with a few rhonchi.. No subcu emphysema. No wheezes or rales. GASTROINTESTINAL: Abdomen soft, non-tender, nondistended. Hepatic and splenic margins not palpable. MUSCULOSKELETAL: Extremities without clubbing, cyanosis, or edema. No obvious deformities. NEUROLOGICAL: Awake and alert. No obvious cranial nerve deficits. Motor grossly within normal limits. Normal speech. - Urinary Catheter Management Condom Cath placed during this visit: no Assessment and Plan - Assessment and Plan Plan: NEURO: Depression Continue Zoloft RESP: Small R PTX Right lung collapse Emphysema with multiple bullae and pulmonary fibrosis Right hilar mass Tobacco abuse I responded to Halicat and evaluated patient who is now on NR with sats 94%. CXR has R apical PTX. The right lung is opacified and I suspect this is related to bronchial obstruction and atelectasis based on volume loss, tracheal deviation to the right. Reviewed prior CT chest and right bronchus patency was compromised at that point. I would not place emergent chest tube in this patient as I am not convinced PTX is the primary cause of his symptoms and it would not be without risk with severe structural lung abnormalities. I would not proceed with bronchoscopy at this point as he would require intubation and after discussion with him he is not agreeable to that. Treat with Mucomyst nebs, guaifenesin, Acapella, CPT to mobilize secretions. Solumedrol to decrease inflammation and adjust Abx as per below. Discontinue cough suppressant. Repeat CT scan. CV: Monitor hemodynamic GI: Regular diet FEN/RENAL: Monitor intake and output. Monitor electrolytes. Creatinine is normal. ID: Postobstructive pneumonia Send expectorated sputum culture if able. Follow-up blood culture. Adjust antibiotics to cefepime and azithromycin and Flagyl for postobstructive pneumonia. HEME: Lung cancer with skeletal metastases diagnosed in January 2018. Status post radiation and with ongoing chemotherapy in [place]. ENDO: Monitor bedside glucose AC/at bedtime while on steroids and administer low -dose insulin sliding scale as indicated. PROPH: Lovenox 40 mg subcu daily for DVT prophylaxis. Famotidine for stress ulcer prophylaxis while on steroids. ACCESS: Peripheral IV providing adequate access. Discussed CODE STATUS with patient. He states he does not want to be intubated under any circumstances. He had previously reported to the admitting team that he wanted shock/CPR for pulseless arrest however he has now changed his mind about that. He is DNR. He is capacitated for medical decision-making currently. Patient is critically ill with respiratory distress and hypoxia. Requires efforts to mobilize secretions and medically managed R lung atelectasis. He is at high risk for further deterioration and will need aggressive respiratory care and monitoring in ICU. Discussed with family medicine team. Updated patient regarding plan of care and he is agreeable. CCT 40 minutes exclusive of separately billable procedures
[2018-07-02] MEDS ORDERED: Dextrose 50% in Water 50 ML Vial IV.PUSH PRN (02:30)
--- NOTE | 2018-07-02 02:32 | P.PNADD ---
Addendum to Inpatient Note Additional information: Zayda Note S: Called for Zayda at 0108 on 07/02/18. Staff reports that the patient closed his current so he can urinate, soon thereafter desaturated to 69% O2 on nonrebreather. Patient denies shortness of breath, chest pain, lightheadedness , dizziness, fever, chills, abdominal pain, changes in vision, cough, hematemesis. Patient is a 67-year-old male with a significant history for metastatic cancer, lung cancer. BiPAP was started in the room, it was noted that the patient had a small pneumothorax, and BiPAP was stopped. He was transitioned back to nonrebreather mask. Patient continued to maintain an O2 saturation around 80%. Patient reported that he was feeling well, continued to have no complaints. O: Pulse 115 O2 saturation initially 69%, increased to 80% GENERAL: Laying in bed, no acute distress, cachectic SKIN: Warm and dry. HEAD: Atraumatic. Normocephalic. EYES: Pupils equal and round. No scleral icterus. No injection or drainage. ENT: No nasal bleeding or discharge. Mucous membranes pink and moist. NECK: Trachea midline. No JVD. CARDIOVASCULAR: Regular rate and rhythm. RESPIRATORY: No accessory muscle use. Breath sounds equal bilaterally. NEUROLOGICAL: Awake and alert. No obvious cranial nerve deficits. Motor grossly within normal limits. Five out of 5 muscle strength in the arms and legs. Normal speech. PSYCHIATRIC: Appropriate mood and affect; insight and judgment normal. Stat chest x-ray wet read showed right sided opacification of the majority of the lung, changed from x-ray earlier in the day A/P: 67-year-old male with history of chest cancer, metastases who had acute O2 desaturation. CT and CXR from earlier in day showed many blebs, small pneumothorax in the right. Follow-up CXR showed new right-sided opacification. Patient continued to maintain O2 saturation in the 80s while on high flow nonrebreather. -Follow-up x-ray official read -Consult sitecore developer -Transfer to ICU -Follow-up ABG
[2018-07-02] MEDS: guaiFENesin 600 MG ER Tablet PO SCH ×3 (03:04→20:18)
[2018-07-02] MEDS: MethylPREDNISolone Sod Succinate Inj 125 MG/2 ML Vial IV.PUSH SCH ×4 (03:04→20:18)
[2018-07-02] MEDS: Chlorhexidine Gluconate 2% 1 Pack (2 Cloths) TOPICAL SCH (03:36)
[2018-07-02] MEDS ORDERED: Chlorhexidine Gluconate 2% 1 Pack (2 Cloths) TOPICAL PRN (04:00)
--- NOTE | 2018-07-02 04:12 | CT ---
EXAM DATE: 07/02/2018 3:54 AM EDT AGE/SEX: 67 years / Male INDICATIONS: Metastatic lung cancer. CLINICAL DATA: This is the patient's initial encounter. Patient reports that signs and symptoms have been present for 1 day and indicates a pain score of 0/10. MEDICAL/SURGICAL HISTORY: Emphysema. Carcinoma, lung. None. RADIATION DOSE: 7.95 CTDI (mGy) COMPARISON: [facility], CTA PULMONARY W CONTRAST W 3D, 07/01/2018. . TECHNIQUE: Multiple contiguous axial images were obtained through the chest without contrast. Image s were obtained in suspended respiration using multiple row detector helical technique. Using automa beatriz exposure control and adjustment of the mA and/or kV according to patient size, radiation dose was kept as low as reasonably achievable to obtain optimal diagnostic quality images. DICOM format imag e data is available electronically for review and comparison. FINDINGS: Lungs: Severe bilateral emphysematous changes as noted on the prior examination. There is a persiste nt right apical pneumothorax. Interval complete opacification of the right lung probably is due to ce ntral occlusion of the right mainstem bronchus due to the previously noted large right central mass l esion. Predominantly interstitial infiltrate in the left perihilar distribution extending into the le ft base is unchanged. Mediastinum: On the prior exam, there was a large, 5.8 x 3.4 cm right hilar mass lesion extending in to the mediastinum which significantly compromise the right mainstem bronchus. This cannot be clearly identified on the current exam as the right lung is now completely collapsed. Pleurae: No evidence of focal thickening or pleural effusion. Axillae: Unremarkable. Bony Structures: There appears to be an old comminuted fracture deformity of the left glenoid Miscell aneous: The examination was extended to include the upper abdomen, and both adrenal glands are jaclyn l in size and configuration. Multiple calcified gallstones in the gallbladder lumen. CONCLUSION: 1. Interval complete opacification of the right lung. This is almost certainly due to occlusion of t he right mainstem bronchus due to the previously noted right hilar/mediastinal large mass lesion. 2. Severe biapical emphysematous changes. Persistent right apical pneumothorax. 3. Stable predominantly interstitial parenchymal process in the left perihilar distribution extendin g into the left lung base. 4. Cholelithiasis. 5. 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 Electronically signed by: Thuan Ann MD 07/02/2018 4:11 AM EDT
[2018-07-02 05:57] LABS: Baso % (Auto) 0.2 % (0.0-2.0); Hematocrit 27.4 % (39.0-51.0); Hemoglobin 9.2 gm/dL (13.0-17.0); Lymph # (Auto) 0.1 th/mm3 (1.0-4.8); Lymph % (Auto) 2.2 % (9.0-44.0); Mean Corpuscular HGB Conc 33.5 % (32.0-36.0); Mean Corpuscular Hemoglobin 32.5 pg (27.0-34.0); Mean Corpuscular Volume 97.1 fL (80.0-100.0); Mean Platelet Volume 8.2 fL (7.0-11.0); Mono # (Auto) 0.1 th/mm3 (0.0-0.9); Mono % (Auto) 2.4 % (0.0-8.0); Neut # (Auto) 5.3 th/mm3 (1.8-7.7); Neut % (Auto) 95.2 % (16.0-70.0); Platelet Count 56 th/mm3 (150-450); Red Blood Count 2.82 mil/mm3 (4.50-5.90); White Blood Count 5.6 th/mm3 (4.0-11.0)
[2018-07-02 06:19] LABS: Albumin 2.1 g/dL (3.4-5.0); Anion Gap 10 meq/L (5-15); Aspartate Aminotransferase 45 U/L (15-37); Blood Urea Nitrogen 13 mg/dL (7-18); Calcium 8.5 mg/dL (8.5-10.1); Carbon Dioxide 26.3 meq/L (21.0-32.0); Chloride 103 meq/L (98-107); Glomerular Filtration Rate Greater Than 89 mL/min (>89); Glucose,Random 165 mg/dL (74-106); Magnesium 1.8 mg/dL (1.5-2.5); Potassium 3.9 meq/L (3.5-5.1); Sodium 139 meq/L (136-145)
[2018-07-02 06:20] LABS: Alanine Aminotransferase 63 U/L (12-78); Phosphorus 3.7 mg/dL (2.5-4.9)
[2018-07-02 06:22] LABS: Alkaline Phosphatase 77 U/L (45-117); Total Protein 7.1 g/dL (6.4-8.2)
[2018-07-02] MEDS: Polyethylene Glycol 3350 17 GM Packet PO SCH (08:52)
[2018-07-02] MEDS: Sertraline 50 MG Tablet PO SCH (08:52)
[2018-07-02] MEDS: Lactobacillus Acidophilus/L. Spores Tablet PO SCH ×3 (08:52→17:18)
[2018-07-02] MEDS: Megestrol Acetate Liq 400 MG/10 ML UDC PO SCH (08:52)
[2018-07-02] MEDS: Insulin NovoLOG Aspart Correctional Sugar Inj SQ SCH ×4 (09:33→20:29)
[2018-07-02] MEDS: Morphine Inj 4 MG/ML Vial IV.PUSH PRN (13:48)
[2018-07-02] MEDS: Famotidine 20 MG Tablet PO SCH ×2 (13:50→20:18)
[2018-07-02] MEDS: Enoxaparin Inj 40 MG/0.4 ML Syringe SQ SCH (13:51)
[2018-07-02] MEDS: Sod Chloride 0.9% Inj 1,000 ML IV.CONT SCH (13:53)
[2018-07-02] MEDS: oxyCODONE/Acetaminophen 10/325 Tablet PO PRN (15:43)
[2018-07-02] MEDS: Azithromycin Inj 500 MG in Sodium Chlor 0.9% Inj 250 ML IV.SIG SCH (15:44)
--- NOTE | 2018-07-02 15:55 | P.PNADD ---
Addendum to Inpatient Note Reason for Addendum: Additional Documentation Additional information: Discussed prognosis and care at length with the patient and family. right mainstem bronchus mass has completely obstructed right lung and caused complete resorptive atelectasis of the lung causing severe acute hypoxemia. spo2 85% on NRB. Discussed CT chest with Dr. Brown of the pulmonary service and he does not think bronchial stent is even a viable option at this point. Patient's goals of care are to go home and be comfortable: preferably in [place], but if not[place] I have consulted hospice which is the patient and family's wishes. DNR still in place Hospice is most appropriate Active problems: post-obstructive HCAP pneumonia acute hypoxic respiratory failure complete atelectatic collapse of the right lung Plan: - hospice - o2 as needed for comfort - diet per the patient's wishes.
--- NOTE | 2018-07-02 17:19 | ECG ---
Date Performed: 07/01/2018 Time Performed: 12:09:50 PTAGE: 67 years EKG: SINUS TACHYCARDIA WITH OCCASIONAL VENTRICULAR PREMATURE COMPLEXES ABNORMAL RHYTHM ECG NO PREVIOUS TRACING DOCTOR: Rebecca Castaneda Interpretating Date/Time 07/02/2018 17:17:39
[2018-07-02] MEDS: Mirtazapine 15 MG Tablet PO SCH (20:18)
[2018-07-03] MEDS: MethylPREDNISolone Sod Succinate Inj 125 MG/2 ML Vial IV.PUSH SCH ×4 (03:05→21:11)
[2018-07-03] MEDS: Chlorhexidine Gluconate 2% 1 Pack (2 Cloths) TOPICAL SCH (03:06)
[2018-07-03] MEDS: Sod Chloride 0.9% Inj 1,000 ML IV.CONT SCH (06:47)
[2018-07-03] MEDS: Insulin NovoLOG Aspart Correctional Sugar Inj SQ SCH ×4 (07:44→21:10)
[2018-07-03] MEDS: oxyCODONE/Acetaminophen 10/325 Tablet PO PRN (08:00)
[2018-07-03] MEDS: Morphine Inj 4 MG/ML Vial IV.PUSH PRN ×5 (09:27→23:05)
[2018-07-03] MEDS: Sertraline 50 MG Tablet PO SCH (09:28)
[2018-07-03] MEDS: guaiFENesin 600 MG ER Tablet PO SCH ×2 (09:28→20:10)
[2018-07-03] MEDS: Lactobacillus Acidophilus/L. Spores Tablet PO SCH ×3 (09:28→19:03)
[2018-07-03] MEDS: Polyethylene Glycol 3350 17 GM Packet PO SCH (09:28)
[2018-07-03] MEDS: Enoxaparin Inj 40 MG/0.4 ML Syringe SQ SCH (09:28)
[2018-07-03] MEDS: Megestrol Acetate Liq 400 MG/10 ML UDC PO SCH (09:28)
[2018-07-03] MEDS: Famotidine 20 MG Tablet PO SCH ×2 (09:28→20:10)
--- NOTE | 2018-07-03 13:42 | XR ---
EXAM DATE: 07/03/2018 1:34 PM EDT AGE/SEX: 67 years / Male INDICATIONS: Pneumonia CLINICAL DATA: This is the patient's subsequent encounter. Patient reports that signs and symptoms h ave been present for 4 - 6 days and indicates a pain score of 0/10. MEDICAL/SURGICAL HISTORY: . Carcinoma, lung. Emphysema None. COMPARISON: [facility], CHEST 1V SINGLE AP, 07/02/2018. . FINDINGS: 2 AP views of the chest. Large areas of bilateral pulmonary consolidation with near complete opacific ation of the right hemithorax and moderate confluent opacification of the lower left lung. Slight inc rease in aeration of the right lung base when compared to the prior study. No change in the left. No evidence of pneumothorax. Possible superimposed right pleural effusion. CONCLUSION: 1. Near complete opacification of the right hemithorax again seen likely representing a combination of parenchymal consolidation/atelectasis and pleural effusion. No evidence of pneumothorax. 2. No change in prominent left lower lung zone pulmonary consolidation. Electronically signed by: Eddi Jauregui MD 07/03/2018 1:40 PM EDT
[2018-07-03] MEDS: Azithromycin Inj 500 MG in Sodium Chlor 0.9% Inj 250 ML IV.SIG SCH (15:34)
--- NOTE | 2018-07-03 17:01 | P.PNCC ---
Subjective Subjective Remarks/Hospital Course: Subjective: 07/03: no improvements. family agrees on hospice care, but they are still trying to decide on care center, versus home hospice in [place]. They continue to ask about transfer to [place], but I do not know at this point if this is feasible to accomplish. Patient and are still focused on pneumonia and CXR for improvement and I think are missing some of the insight into how terminal he is at the present time. patient denies any other symptoms other than dyspnea. does ask for some xanax or ativan for anxiety associated with dyspnea, which I think is appropriate. Objective Vital Signs / I&O: Vital Signs 07/02/18 20:00 07/02/18 20:34 07/02/18 23:52 Temperature 37.0 C Pulse Rate 102 H 93 H 89 Respiratory Rate 22 20 21 Blood Pressure 114/71 Pulse Oximetry 92 L 91 L 07/03/18 00:00 07/03/18 01:57 07/03/18 03:46 Temperature 37.0 C Pulse Rate 89 108 H 98 H Respiratory Rate 19 28 H 27 H Blood Pressure 116/69 Pulse Oximetry 95 07/03/18 04:00 07/03/18 08:00 07/03/18 08:46 Temperature 37.1 C 37.1 C Pulse Rate 97 H 104 H 109 H Respiratory Rate 18 25 H Blood Pressure 102/69 135/86 Pulse Oximetry 92 L 87 L 87 L 07/03/18 09:29 07/03/18 10:40 07/03/18 15:48 Temperature Pulse Rate Respiratory Rate 28 H 25 H 24 Blood Pressure Pulse Oximetry Intake & Output 07/02/18 07/03/18 07/03/18 18:59 06:59 18:59 Intake Total 2130 / 2130 1640 / 1640 200 / 200 Output Total 400 / 400 850 / 850 Balance 1730 / 1730 790 / 790 200 / 200 Weight 66 kg Intake: IV 1650 / 1650 1400 / 1400 200 / 200 NS Inj 1,000 ML @ 50 mls/hr IV. 1000 / 1000 1000 / 1000 CONT .Q20H [facility] Rx#:[id number] Azithromycin Inj 500 MG In NS 250 / 250 Inj 250 ML @ 250 mls/hr IV.SIG Q24H [facility] Rx#:[id number] Maxipime Inj 2,000 MG In NS Inj 200 / 200 200 / 200 100 / 100 100 ML @ 200 mls/hr IV.SIG Q8H [facility] Rx#:[id number] Flagyl 500 MG Inj 100 ML @ 100 200 / 200 200 / 200 100 / 100 mls/hr IV.SIG Q8H [facility] Rx#: [id number] Oral 480 / 480 240 / 240 Output: Urine 850 / 850 Urine Amount (Catheter) 400 / 400 Condom 400 / 400 Other: Date of Last Bowel Movement 07/02/18 07/02/18 07/02/18 # Bowel Movements 0 Result Diagrams: 07/02/18 05:38 07/02/18 05:38 Objective Remarks: GENERAL: Frail elderly male, lying in bed, in respiratory distress, a nonrebreather HEENT: Normocephalic. Atraumatic. Pupils equal, round, reactive, conjugate. Mucous membranes are moist NECK: Trachea is midline. There is no JVD. CHEST: Nonrebreather in place. Tachypneic. SPO2 88%. CARDIOVASCULAR: Normal rate, regular then. Sinus. ABDOMEN: Soft, nontender, nondistended. No guarding. MUSCULOSKELETAL: Pulses 2+. No peripheral edema. NEUROLOGICAL: RASS 0. CAM -. GCS 15. Follows commands. No focal deficits. Assessment and Plan - Assessment and Plan Plan: Assessment: 67-year-old male with stage IV lung cancer now with completely obstructed right mainstem bronchus and associated complete atelectatic collapse the right lung, complicated by postobstructive pneumonia and acute hypoxic respiratory failure. Unlikely to survive this hospitalization, and I agree that hospice care is most appropriate thing for him. Family is understanding and wishes to keep the patient DNR. We will consult palliative care to assist in further goal and decision making. At this point, I do not see a role for the ICU, as the patient is expressed his wishes not for heroic measures or life support, and [facility] will provide more comfortable and quiet environment for him and his family. NEURO: Depression Anxiety Air hunger Continue Zoloft Ativan and morphine as needed RESP: Small R PTX Right lung collapse Emphysema with multiple bullae and pulmonary fibrosis Right hilar mass Tobacco abuse Obstruction of the right mainstem bronchus with tumor Complete atelectatic collapse the right lung Postobstructive pneumonia Titrate oxygen for comfort. Ativan as needed for anxiety Morphine as needed for air hunger CV: Monitor hemodynamic GI: Regular diet FEN/RENAL: Monitor intake and output. Monitor electrolytes. Creatinine is normal. ID: Postobstructive pneumonia Send expectorated sputum culture if able. Follow-up blood culture. Continue cefepime and azithromycin and Flagyl for postobstructive pneumonia. HEME: Lung cancer with skeletal metastases diagnosed in January 2018. Status post radiation and with ongoing chemotherapy in [place]. ENDO: Monitor bedside glucose AC/at bedtime while on steroids and administer low -dose insulin sliding scale as indicated. PROPH: Lovenox 40 mg subcu daily for DVT prophylaxis. Famotidine for stress ulcer prophylaxis while on steroids. ACCESS: Peripheral IV providing adequate access. Continue DNR CODE STATUS Consult palliative care Consult hospital service to assume care
[2018-07-03] MEDS: Mirtazapine 15 MG Tablet PO SCH (20:10)
[2018-07-04] MEDS: Sod Chloride 0.9% Inj 1,000 ML IV.CONT SCH (02:33)
[2018-07-04] MEDS: MethylPREDNISolone Sod Succinate Inj 125 MG/2 ML Vial IV.PUSH SCH ×3 (02:33→14:36)
[2018-07-04] MEDS: Morphine Inj 4 MG/ML Vial IV.PUSH PRN ×4 (04:02→17:17)
[2018-07-04] MEDS: Chlorhexidine Gluconate 2% 1 Pack (2 Cloths) TOPICAL SCH (04:03)
[2018-07-04] MEDS: Lactobacillus Acidophilus/L. Spores Tablet PO SCH (09:17)
[2018-07-04] MEDS: Megestrol Acetate Liq 400 MG/10 ML UDC PO SCH (09:17)
[2018-07-04] MEDS: Enoxaparin Inj 40 MG/0.4 ML Syringe SQ SCH (09:17)
[2018-07-04] MEDS: guaiFENesin 600 MG ER Tablet PO SCH (09:18)
[2018-07-04] MEDS: Polyethylene Glycol 3350 17 GM Packet PO SCH (09:18)
--- NOTE | 2018-07-04 13:44 | P.PNIM ---
Subjective Interval history: The patient had a facemask on. His eyes were closed but he was moving his upper extremities around. His family was at the bedside, as was the hospice nurse. Physical Exam Vital signs: Vital Signs 07/03/18 14:00 07/03/18 15:00 07/03/18 15:48 Temperature Pulse Rate 103 H 101 H Respiratory Rate 16 16 24 Blood Pressure 99/56 L 105/73 Pulse Oximetry 93 L 90 L 07/03/18 16:00 07/03/18 17:00 07/03/18 17:42 Temperature Pulse Rate 111 H 104 H 102 H Respiratory Rate 26 H 14 14 Blood Pressure 107/66 74/58 L 82/60 L Pulse Oximetry 89 L 94 L 94 L 07/03/18 18:00 07/03/18 19:00 07/03/18 19:01 Temperature Pulse Rate 103 H 115 H 112 H Respiratory Rate 15 36 H 28 H Blood Pressure 90/58 L 114/70 Pulse Oximetry 94 L 88 L 87 L 07/03/18 20:00 07/03/18 21:37 07/04/18 00:00 Temperature 98.6 F Pulse Rate 104 H 120 H 110 H Respiratory Rate 25 H 30 H 17 Blood Pressure 91/58 L 88/64 L Pulse Oximetry 96 85 L 94 L 07/04/18 04:00 07/04/18 07:54 Temperature 99.2 F Pulse Rate 130 H Respiratory Rate 21 Blood Pressure 123/83 Pulse Oximetry 83 L 100 Intake & Output 07/03/18 07/04/18 07/04/18 18:59 06:59 18:59 Intake Total 200 / 200 1650 / 1650 Output Total 800 / 800 850 / 850 Balance -600 / -600 800 / 800 Weight 68 kg Intake: IV 200 / 200 1650 / 1650 NS Inj 1,000 ML @ 50 mls/hr IV. 1000 / 1000 CONT .Q20H [facility]NA Rx#:[id number] Azithromycin Inj 500 MG In NS 250 / 250 Inj 250 ML @ 250 mls/hr IV.SIG Q24H [facility] Rx#:[id number] Maxipime Inj 2,000 MG In NS Inj 100 / 100 200 / 200 100 ML @ 200 mls/hr IV.SIG Q8H [facility]NA Rx#:[id number] Flagyl 500 MG Inj 100 ML @ 100 100 / 100 200 / 200 mls/hr IV.SIG Q8H [facility]NA Rx#: [id number] Oral 0 / 0 Output: Urine 850 / 850 Urine Amount (Catheter) 800 / 800 Condom 800 / 800 Other: Date of Last Bowel Movement 07/02/18 07/02/18 # Bowel Movements 0 Narrative: GENERAL: Ill-appearing male who is on nonrebreather. SKIN: Warm and dry. HEAD: Atraumatic. Normocephalic. EYES: Pupils equal and round. No scleral icterus. No injection or drainage. ENT: Nonrebreather mask in place. NECK: Trachea midline. No JVD. CARDIOVASCULAR: Tachycardic. No murmurs rubs or gallops. RESPIRATORY: Diminished breath sounds throughout right lung field with a few rhonchi. GASTROINTESTINAL: Abdomen soft, non-tender, nondistended. Hepatic and splenic margins not palpable. MUSCULOSKELETAL: Extremities without clubbing, cyanosis, or edema. No obvious deformities. NEUROLOGICAL: Withdrawn. Moving upper extremities spontaneously. - Urinary Catheter Management Condom Cath placed during this visit: no Results - Labs CBC & Chem 7: 07/02/18 05:38 07/02/18 05:38 Microbiology 07/01/18 12:00 Blood - Peripheral Aerobic Blood Culture - Preliminary No growth in 3 days 07/01/18 12:00 Blood - Peripheral Anaerobic Blood Culture - Preliminary No growth in 3 days 07/01/18 12:18 Blood - Peripheral Aerobic Blood Culture - Preliminary No growth in 3 days 07/01/18 12:18 Blood - Peripheral Anaerobic Blood Culture - Preliminary No growth in 3 days Assessment and Plan - Assessment (1) Acute respiratory failure Code(s): J96.00 - Acute respiratory failure, unspecified whether with hypoxia or hypercapnia Status: Acute (2) Lung cancer Code(s): C34.90 - Malignant neoplasm of unspecified part of unspecified bronchus or lung Status: Acute (3) Pneumothorax Code(s): J93.9 - Pneumothorax, unspecified Status: Acute (4) Hypoxia Code(s): R09.02 - Hypoxemia Status: Acute (5) COPD (chronic obstructive pulmonary disease) Code(s): J44.9 - Chronic obstructive pulmonary disease, unspecified Status: Acute - Plan 67-year-old male with stage IV lung cancer now with completely obstructed right mainstem bronchus and associated complete atelectatic collapse the right lung, complicated by postobstructive pneumonia and acute hypoxic respiratory failure. Depression Anxiety Air hunger -Continue Zoloft -Ativan and morphine as needed Small R PTX Right lung collapse Emphysema with multiple bullae and pulmonary fibrosis Right hilar mass Tobacco abuse Obstruction of the right mainstem bronchus with tumor Complete atelectatic collapse the right lung Postobstructive pneumonia -Titrate oxygen for comfort. -Ativan as needed for anxiety -Morphine as needed for air hunger -hospice following. Anticipate d/c to care center once additional family members arrive. Postobstructive pneumonia -Follow-up blood culture. -Continue cefepime and azithromycin and Flagyl for postobstructive pneumonia. Lung cancer with skeletal metastases diagnosed in January 2018. Status post radiation and with ongoing chemotherapy in [place]. -anticipate hospice. PROPH: Lovenox 40 mg subcu daily for DVT prophylaxis. Famotidine for stress ulcer prophylaxis while on steroids.
--- NOTE | 2018-07-04 16:55 | P.DS ---
Date of admission: 07/01/18 15:19 Primary care physician: UNKNOWN Anticipated date of discharge: 07/04/18 Brief History from admission: Mr. Rodgers is a 67-year-old male. He is visiting [place] from [place]. He has lung cancer at baseline which is metastatic to the spine. Chemotherapy is provided recently. She says he has not had reactions in the past to chemotherapy similar to what occurring today which is respiratory distress and hypoxia. Today he comes in the hospital with progressive shortness of breath. His family reports that he may have been short of breath for up to a week but in the past 48 hours he has had acute regression in the shortness of breath. As an outpatient he uses oxygen as needed. Oxygen saturations as an outpatient were in the 70s and 80s. He came into the ER at 80% on 3 L and oxygen saturation was in the 80s. A nonrebreather was utilized which improved his saturations and his respiratory distress. Subsequently he has been weaned to 4 L/min nasal cannula of oxygen. Chemotherapy places this patient in immunocompromise state which may hide pneumonia. Pneumonia could be one etiology for his respiratory distress and failure. An additional finding is a small pneumothorax so this pneumothorax is an acute change this could cause his respiratory distress and failure. DS: Diagnosis - Discharge Diagnosis (1) Acute respiratory failure Status: Acute (2) Lung cancer Status: Acute (3) Pneumothorax Status: Acute (4) Hypoxia Status: Acute (5) COPD (chronic obstructive pulmonary disease) Status: Acute DS: Summary Hospital Course: 67-year-old male with stage IV lung cancer now with completely obstructed right mainstem bronchus and associated complete atelectatic collapse of the right lung , complicated by postobstructive pneumonia and acute hypoxic respiratory failure. After discussing with the patient and family the pt's code status remained DNR. He was continued on IV antibiotics and received oxygen and nebs as needed. Palliative care was consulted for further goal and decision making. Hospice was eventually consulted and the family agreed with discharge to the hospice care center. The pt received Ativan and morphine as needed for anxiety and air hunger. Case management was consulted and assisted with disposition. - Time Spent with Patient Total time spent providing and/or coordinating discharge services: Greater than 30 minutes Exam Vital signs: Vital Signs 07/03/18 17:00 07/03/18 17:42 07/03/18 18:00 Temperature Pulse Rate 104 H 102 H 103 H Respiratory Rate 14 14 15 Blood Pressure 74/58 L 82/60 L 90/58 L Pulse Oximetry 94 L 94 L 94 L 07/03/18 19:00 07/03/18 19:01 07/03/18 20:00 Temperature 98.6 F Pulse Rate 115 H 112 H 104 H Respiratory Rate 36 H 28 H 25 H Blood Pressure 114/70 91/58 L Pulse Oximetry 88 L 87 L 96 07/03/18 21:37 07/04/18 00:00 07/04/18 04:00 Temperature 99.2 F Pulse Rate 120 H 110 H 130 H Respiratory Rate 30 H 17 21 Blood Pressure 88/64 L 123/83 Pulse Oximetry 85 L 94 L 83 L 07/04/18 07:54 Temperature Pulse Rate Respiratory Rate Blood Pressure Pulse Oximetry 100 Intake & Output 07/03/18 07/04/18 07/04/18 18:59 06:59 18:59 Intake Total 200 / 200 1650 / 1650 Output Total 800 / 800 850 / 850 Balance -600 / -600 800 / 800 Weight 68 kg Intake: IV 200 / 200 1650 / 1650 NS Inj 1,000 ML @ 50 mls/hr IV. 1000 / 1000 CONT .Q20H [facility] Rx#:[id number] Azithromycin Inj 500 MG In NS 250 / 250 Inj 250 ML @ 250 mls/hr IV.SIG Q24H [facility] Rx#:[id number] Maxipime Inj 2,000 MG In NS Inj 100 / 100 200 / 200 100 ML @ 200 mls/hr IV.SIG Q8H [facility] Rx#:[id number] Flagyl 500 MG Inj 100 ML @ 100 100 / 100 200 / 200 mls/hr IV.SIG Q8H [facility] Rx#: [id number] Oral 0 / 0 Output: Urine 850 / 850 Urine Amount (Catheter) 800 / 800 Condom 800 / 800 Other: Date of Last Bowel Movement 07/02/18 07/02/18 07/02/18 # Bowel Movements 0 Narrative: GENERAL: Ill-appearing male who is on nonrebreather. SKIN: Warm and dry. HEAD: Atraumatic. Normocephalic. EYES: Pupils equal and round. No scleral icterus. No injection or drainage. ENT: Nonrebreather mask in place. NECK: Trachea midline. No JVD. CARDIOVASCULAR: Tachycardic. No murmurs rubs or gallops. RESPIRATORY: Diminished breath sounds throughout right lung field with a few rhonchi. GASTROINTESTINAL: Abdomen soft, non-tender, nondistended. Hepatic and splenic margins not palpable. MUSCULOSKELETAL: Extremities without clubbing, cyanosis, or edema. No obvious deformities. NEUROLOGICAL: Withdrawn. Moving upper extremities spontaneously. Results Procedures completed during hospitalization: See hospital course Labs on day of discharge: Preliminary micro results at discharge 07/01/18 12:00 Aerobic Blood Culture - Preliminary Blood - Peripheral No growth in 3 days Anaerobic Blood Culture - Preliminary No growth in 3 days 07/01/18 12:18 Aerobic Blood Culture - Preliminary Blood - Peripheral No growth in 3 days Anaerobic Blood Culture - Preliminary No growth in 3 days - Impressions ITS Impressions Chest CTA 07/01/18 13:19 CONCLUSION: 1. Extensive edematous changes with small right pneumothorax 2. Extensive pleural and parenchymal changes in both lungs with large left hilar mass 3. With metastasis as described above. 4. No central pulmonary emboli. Chest CT 07/02/18 00:00 CONCLUSION: 1. Interval complete opacification of the right lung. This is almost certainly due to occlusion of the right mainstem bronchus due to the previously noted right hilar/mediastinal large mass lesion. 2. Severe biapical emphysematous changes. Persistent right apical pneumothorax. 3. Stable predominantly interstitial parenchymal process in the left perihilar distribution extending into the left lung base. 4. Cholelithiasis. 5. 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 Chest X-Ray 07/03/18 00:00 CONCLUSION: 1. Near complete opacification of the right hemithorax again seen likely representing a combination of parenchymal consolidation/atelectasis and pleural effusion. No evidence of pneumothorax. 2. No change in prominent left lower lung zone pulmonary consolidation. Discharge Plan - Discharge Disposition Patient Disposition: [facility] Hospice/Med Facility - Discharge Condition Condition: Serious - Discharge Order Discharge Orders: Discharge Order (Routine); Ordered 07/04/18 Ordered By: Antoine Romero - Discharge Details Anticipated Discharge Date: 07/04/18 - Physicians Team Primary Care Provider: UNKNOWN, Attending Provider: Antoine Romero Other Providers: Amy Tucker MD ; Juana Trujillo MD
== END 2018-07-04 17:40 | disposition hospice, inpatient (51) ==
LOC: NEPC 11:41 → NEDA 15:19 → HCIS 17:54 → HIMC 07-02 02:30
PROVIDERS: ADMIT Hospitalist; ATTEND Hospitalist